=== PATIENT | male | born 1985 | race Caucasian/White ===

== ENCOUNTER 2018-05-30 18:11 | Emergency (ER) | payer MEDICAID ==
[2018-05-30] MEDS: KETOROLAC 60 MG INJ IM (19:28)
[2018-05-30] MEDS: HYDROCODONE/APAP (5/325) TAB PO (19:31)
[2018-05-30 20:08] LABS: ADD UMIC NO; UR ASCORBIC ACID NEGATIVE (NEGATIVE); UR BILIRUBIN (Dip) NEGATIVE (NEGATIVE); UR BLOOD (Dip) NEGATIVE (NEGATIVE); UR CLARITY CLEAR (CLEAR); UR COLOR YELLOW (YELLOW); UR GLUCOSE (Dip) NEGATIVE (NEGATIVE); UR KETONES (Dip) NEGATIVE (NEGATIVE); UR LEUKOCYTE ESTERASE (Dip) NEGATIVE Leu/ul (NEGATIVE); UR NITRITE (Dip) NEGATIVE (NEGATIVE); UR SPECIFIC GRAVITY (Dip) 1.023 (1.003-1.030); UR TOTAL PROTEIN (Dip) NEGATIVE (NEGATIVE); UR UROBILINOGEN (Dip) NEGATIVE (NEGATIVE)
== END 2018-05-30 21:03 | disposition home or self-care (01) ==
LOC: FTE 18:11
DX: M54.5 Low back pain (principal)
CPT/HCPCS: 72100; 81003; 96372; 99284-25